=== PATIENT | female | born 1985 | race Caucasian/White ===

== ENCOUNTER → 2017-06-07 12:05 | Outpatient (CLI) | payer MEDICAID, SELFPAY | DX: Z36.9 Encounter for antenatal screening, unspecified (principal) | CPT/HCPCS: 36415 ==

== ENCOUNTER → 2017-06-24 09:25 | Outpatient (CLI) | payer MEDICAID, SELFPAY ==
[2017-06-24 10:10] LABS: Absolute Lymphocyte Count 1.07 X10^3/ul (0.83-4.51); Absolute Neutrophil Count 5.7 X10^3/uL (2.0-7.7); Basophil# 0.01 X10^3/uL; Basophil% 0.1 % (0-1); Eosinophil# 0.03 X10^3/uL; Eosinophils% 0.4 % (0-5); Hematocrit 33.5 % (37-47); Lymphocyte # 1.07 X10^3/ul (4.0); Mean Corp Hgb Conc 32.8 g/gl (32-36); Mean Corpuscular Volume 88.4 fL (81-99); Mean Platelet Vol. 9.3 fl (6.2-12.0); Monocyte# 0.27 X10^3/uL; Monocyte% 3.8 % (0-10); Neutrophil # 5.71 X10^3/uL (2.7-7.7); Neutrophil % 80.4 % (47-70); POSITIVE COUNT NO; POSITIVE DIFFERENTIAL NO; POSITIVE MORPHOLOGY NO; Platelet Count 197 K/mm3 (150-450); RBC Distribution Width CV 14.9 % (11.6-14.6); RBC Distribution Width SD 48.1 fl (35.1-43.9); Red Blood Count 3.79 M/mm3 (4.2-5.4); White Blood Count 7.1 K/mm3 (4.4-11.0)
[2017-06-24 10:34] LABS: 24HR. Urine Creatinine 1.48 g/24 HR (0.70-1.90)
[2017-06-24 10:55] LABS: Creat.Clear Total Volume 1000 mL; Creatinine Clearance 183 ml/min (100-200); Creatinine Serum Creat 0.6 mg/dL (0.6-1.0); EST Glomerular Filtration Rate 130 mL/min (>60); Est Glom Filt Rate - Afr Amer 158 mL/min (>60)
[2017-06-24 10:57] LABS: ALB/GLOB Ratio 0.8 RATIO (0.9-2.4); AST(SGOT) 12 U/L (15-37); Alanine Aminotransfer ALT/SGPT 18 U/L (13-56); Alkaline Phosphatase 58 U/L (45-117); Anion Gap 8 (5-15); BUN 7 mg/dL (7-18); BUN/Creat Ratio 12.4 RATIO (10-20); Calcium,Total 8.5 mg/dL (8.5-10.1); Chloride 106 mmol/L (98-107); Creatinine, Serum 0.56 mg/dL (0.55-1.02); EST Glomerular Filtration Rate 130 mL/min (>60); Est Glom Filt Rate - Afr Amer 158 mL/min (>60); Globulin 3.9 g/dL (2.2-4.2); Glucose 122 mg/dL (74-106); LDH 162 U/L (84-246); Potassium 3.5 mmol/L (3.5-5.1); Protein, Total 6.9 g/dL (6.4-8.2); Sodium Level 138 mmol/L (136-145); Thyroid Stim Hormone (TSH) 0.33 uIU/mL (0.358-3.74)
[2017-06-24 13:59] LABS: 24HR. UA Prot. Total Volume 1000 mL; Urine Protein (24 Hour) 10.7 mg/dL (<11.9)
== END ==
PROVIDERS: Nurse Practitioner Women's Health; Visit Provider Obstetrics & Gynecology
DX: O24.419 Gestational diabetes mellitus in pregnancy, unspecified control (principal); O09.40 Supervision of pregnancy with grand multiparity, unspecified trimester; O16.9 Unspecified maternal hypertension, unspecified trimester; Z3A.00 Weeks of gestation of pregnancy not specified
CPT/HCPCS: 36415; 80053; 82570; 82575; 83036; 83615; 84156; 84166; 84443; 84550; 85025

== ENCOUNTER → 2017-06-25 14:16 | Outpatient (CLI) | payer MEDICAID, SELFPAY ==
[2017-06-25 15:59] LABS: T4 Free Direct 1.13 ng/dL (0.76-1.46)
== END ==
PROVIDERS: Visit Provider Obstetrics & Gynecology
DX: R94.6 Abnormal results of thyroid function studies (principal)
CPT/HCPCS: 36415; 84439

== ENCOUNTER 2017-06-30 09:00 | Outpatient (RCR) | payer MEDICAID, SELFPAY | END 2017-07-24 23:59 | LOC: DC 09:00 | PROVIDERS: Visit Provider Nurse Practitioner | DX: O24.419 Gestational diabetes mellitus in pregnancy, unspecified control (principal); Z71.3 Dietary counseling and surveillance | CPT/HCPCS: 97802; G0108; G0109 ==

== ENCOUNTER → 2017-07-12 12:15 | Outpatient (CLI) | payer MEDICAID, SELFPAY | DX: Z36.9 Encounter for antenatal screening, unspecified (principal) | CPT/HCPCS: 36415 ==

== ENCOUNTER → 2017-07-20 18:44 | Outpatient (CLI) | payer MEDICAID, SELFPAY ==
--- NOTE | 2017-07-20 18:35 | US_ITS ---
STUDY: SECOND AND THIRD TRIMESTER OBSTETRICAL ULTRASOUND REASON FOR EXAM: Female, 31 years old. Anatomy LMP: TECHNIQUE: Transabdominal and Transvaginal PRIOR ULTRASOUND: None. FINDINGS: There is a single intrauterine fetus. The fetus is in a cephalic presentation. There is demonstrated cardiac activity with a heart rate of 150 bpm. There is a normal amniotic fluid volume. The largest amniotic fluid pocket measures 6.6 cm. The placenta is posterior in location and is not low lying. There are Grade 0 placental changes. The cervix measures 42 mm in length. The adnexal regions are not visualized. BIOMETRY: BPD: 41MM: 18 weeks, 3 days HC: 165MM: 19 weeks, 2 days AC: 143MM: 19 weeks, 5 days FL: 30MM: 19 weeks, 3 days CI: 72 FL/BPD: 74 FL/HC: FL/AC: 21 HC/AC: 1.15 age by current US: 19 weeks, 3 days. PATY by current US: 8.19.18. Estimated weight: 291 grams, +/- 43 grams, 62 %. Age by LMP: 19 weeks, 1 days. PATY by LMP: 8.20.18. ANATOMY: Gender: Female Cranium: Normal lateral ventricles. Normal choroid plexus. Normal cerebellum. Normal cisterna magna. Normal face, nose and lips. Chest: Normal 4-chamber heart. Abdomen/Pelvis: Normal diaphragm. Normal stomach. Normal abdominal wall. Normal cord insertion. Normal 3 vessel cord. Normal kidneys. Normal bladder. Spine: Normal cervical spine. Normal thoracic spine. Normal lumbar spine. Normal sacrum. Extremities: Normal bilateral upper extremities. Normal bilateral lower extremities. US/OB Anatomy Scan IMPRESSION: There is a single live intrauterine with a heart rate of 150 bpm. age by current US: 19 weeks, 3 days. PATY by current US: 8.19.18. Normal anatomic survey. Electronically Signed: Behzad Rios MD at 19:56 EDT , Service support ,
== END ==
PROVIDERS: Visit Provider Obstetrics & Gynecology
DX: O09.91 Supervision of high risk pregnancy, unspecified, first trimester (principal); Z3A.00 Weeks of gestation of pregnancy not specified
CPT/HCPCS: 76805

== ENCOUNTER 2017-09-27 09:50 | Outpatient (CLI) | payer MEDICAID, SELFPAY ==
--- NOTE | 2017-09-27 09:50 | DT_ITS ---
This patient was seen during an EMR downtime September 27, 2017 - October 04, 2017. This patient may have a combination of paper and electronic documentation or all paper documentation. All documentation is viewable within the e-chart portion of [facility] for each patient visit.
[2017-09-30 11:44] LABS: ALB/GLOB Ratio 0.8 RATIO (0.9-2.4); AST(SGOT) 10 U/L (15-37); Alanine Aminotransfer ALT/SGPT 14 U/L (13-56); Albumin, Serum 2.9 g/dL (3.2-5.0); Alkaline Phosphatase 62 U/L (45-117); BUN 7 mg/dL (7-18); BUN/Creat Ratio 14.9 RATIO (10-20); Calcium,Total 8.5 mg/dL (8.5-10.1); Creatinine, Serum 0.47 mg/dL (0.55-1.02); EST Glomerular Filtration Rate 161 mL/min (>60); Est Glom Filt Rate - Afr Amer 195 mL/min (>60); Globulin 3.6 g/dL (2.2-4.2); Glucose 92 mg/dL (74-106); Protein, Total 6.5 g/dL (6.4-8.2)
[2017-09-30 11:45] LABS: Anion Gap 7 (5-15); Chloride 109 mmol/L (98-107); Potassium 3.8 mmol/L (3.5-5.1); Protein, Urine (Random) 9.8 mg/dL (<11.9); Protein:Creat Ratio 100 mg/g CRE (0-200); Sodium Level 137 mmol/L (136-145)
[2017-09-30 16:56] LABS: Hematocrit 32.6 % (37-47); Hemoglobin 10.7 g/dl (12.0-15.0); Mean Corp Hgb Conc 32.8 g/gl (32-36); Mean Corpuscular Hgb 30.1 pg (27.0-32.0); Mean Corpuscular Volume 91.8 fL (81-99); Mean Platelet Vol. 10.4 fl (6.2-12.0); Platelet Count 216 K/mm3 (150-450); RBC Distribution Width CV 14.6 % (11.6-14.6); RBC Distribution Width SD 46.5 fl (35.1-43.9); Red Blood Count 3.55 M/mm3 (4.2-5.4); Scan Indicated on CBC? Y/N NO
[2017-09-30 17:53] LABS: International Normalized Ratio 1.1; Partial Thromboplast Time 29.7 Seconds (24.1-36.2); Prothrombin Time (Protime)PT. 13.9 SECONDS (11.7-14.9)
== END 2017-09-27 10:45 | disposition home or self-care (01) ==
LOC: WPOUT 09-28 14:32
PROVIDERS: Visit Provider Obstetrics & Gynecology
DX: Z34.90 Encounter for supervision of normal pregnancy, unspecified, unspecified trimester (principal); R03.0 Elevated blood-pressure reading, without diagnosis of hypertension
CPT/HCPCS: 36415; 59050; 80053; 82570; 84156; 84550; 85027; 85610; 85730; 99218; G0378

== ENCOUNTER → 2017-10-11 18:42 | Outpatient (CLI) | payer MEDICAID, SELFPAY ==
--- NOTE | 2017-10-11 18:44 | US_ITS ---
STUDY: SECOND AND THIRD TRIMESTER OBSTETRICAL ULTRASOUND - LIMITED REASON FOR EXAM: Female, 32 years old. Routine survey. LMP: 03/08/2017 PRIOR ULTRASOUND: 07/20/2017 TECHNIQUE: Transabdominal ultrasound evaluation was performed. FINDINGS: There is a single intrauterine fetus. The fetus is in a cephalic presentation. There is demonstrated cardiac activity with a heart rate of 149 bpm. There is a normal amniotic fluid volume. The largest amniotic fluid pocket measures 5.9 x 3.0 cm. The amniotic fluid index (AD) is 13.91 cm. The placenta is posterior in location and is not low lying. There are Grade 1 placental changes. The cervix measures 3.4 cm in length. BIOMETRY: BPD: 7.54 cm: 30 weeks, 2 days HC: 28.88 cm: 31 weeks, 6 days AC: 26.76 cm: 31 weeks, 0 days FL: 6.22 cm: 32 weeks, 2 days Age by LMP: 31 weeks, 0 days. PATY by LMP: 12/13/2017. age by prior US: 19 weeks, 3 days. PATY by prior US: 12/12/2017. age by current US: 31 weeks, 3 days. PATY by current US: 12/10/2017. Estimated weight: 1746 grams, +/- 255 grams, 49 percentile. Gender: Indeterminant US/OB Limited With Biometrics IMPRESSION: Single live intrauterine at 31 weeks, 3 days by current ultrasound with PATY of 12/10/2017. Heart rate at 149 bpm. No suspicious sonographic findings, there has been normal growth noted since the previous study. Electronically Signed: Rik Coronel MD at 8:37 EDT , Service support ,
== END ==
PROVIDERS: Visit Provider Obstetrics & Gynecology
DX: O24.419 Gestational diabetes mellitus in pregnancy, unspecified control (principal); O09.40 Supervision of pregnancy with grand multiparity, unspecified trimester; Z3A.00 Weeks of gestation of pregnancy not specified
CPT/HCPCS: 76816

== ENCOUNTER → 2017-11-08 08:52 | Outpatient (CLI) | payer MEDICAID, SELFPAY ==
--- NOTE | 2017-11-08 08:54 | US_ITS ---
STUDY: SECOND AND THIRD TRIMESTER OBSTETRICAL ULTRASOUND - LIMITED REASON FOR EXAM: Female, 32 years old. Routine survey. Gestational diabetes. LMP: March 08, 2017 PRIOR ULTRASOUND: Comparison is made with prior examination dated October 11, 2017 and July 20, 2017. TECHNIQUE: Transabdominal ultrasound evaluation was performed. FINDINGS: There is a single intrauterine fetus. The fetus is in a cephalic presentation. There is demonstrated cardiac activity with a heart rate of 139 bpm. There is a normal amniotic fluid volume. The largest amniotic fluid pocket measures 7.5 cm x 5.1 cm. The amniotic fluid index (AD) is 12.4 cm. The placenta is fundal in location. There are Grade 1 placental changes. The cervix measures 3.9 cm in length. BIOMETRY: BPD: 8.67 cm: 35 weeks, 0 days HC: 32.21 sono: 36 weeks, 3 days AC: 33.12 cm: 37 weeks, 1 days FL: 6.88 cm: 35 weeks, 3 days Age by LMP: 35 weeks, 0 days. PATY by LMP: December 13, 2017. age by prior US: 35 weeks, 3 days. PATY by prior US: December 10, 2017. age by current US: 36 weeks, 0 days. PATY by current US: December 06, 2017. Estimated weight: 2902 grams, +/- 424 grams, 83 percentile. Gender: US/OB Limited With Biometrics IMPRESSION: Single live intrauterine gestation with a mean gestational age of 35 weeks and 3 days. The measurements obtained today fall within the normal expected range. Electronically Signed: Shahriar Shannon MD at 15:03 EDT Tel [phone], Service support ,
== END ==
PROVIDERS: Visit Provider Obstetrics & Gynecology
DX: O24.419 Gestational diabetes mellitus in pregnancy, unspecified control (principal); O09.40 Supervision of pregnancy with grand multiparity, unspecified trimester; Z3A.00 Weeks of gestation of pregnancy not specified
CPT/HCPCS: 76816

== ENCOUNTER → 2017-11-29 09:02 | Outpatient (CLI) | payer MEDICAID, SELFPAY ==
--- NOTE | 2017-11-29 09:03 | US_ITS ---
STUDY: SECOND AND THIRD TRIMESTER OBSTETRICAL ULTRASOUND - LIMITED REASON FOR EXAM: Female, 32 years old. growth PRIOR ULTRASOUND: 11/08/2017 TECHNIQUE: Transabdominal ultrasound evaluation was performed. FINDINGS: There is a single intrauterine fetus. The fetus is in a cephalic presentation. There is demonstrated cardiac activity with a heart rate of 146 bpm. There is a normal amniotic fluid volume. The largest amniotic fluid pocket measures 5.5 cm. The amniotic fluid index (AD) is 12.9 cm. The placenta is fundal in location. There are Grade 2 placental changes. The cervix is not visualized. BIOMETRY: BPD: 9.33 cm: 38 weeks, 0 days HC: 33.4 cm: 38 weeks, 2 days AC: 35.33 cm: 30 weeks, 2 days FL: 7.63 cm: 39 weeks, 1 days age by prior US: 39 weeks, 0 days. PATY by prior US: 12/06/2017. age by current US: 38 weeks, 5 days. PATY by current US: 12/08/2017. Estimated weight: 3627 grams, +/- 530 grams, 83 percentile. US/OB Limited With Biometrics IMPRESSION: Single live intrauterine gestation at approximately 38 weeks and 5 days based on the current ultrasound. Electronically Signed: Davian Romero, at 20:56 EDT Tel , Service support ,
== END ==
PROVIDERS: Visit Provider Obstetrics & Gynecology
DX: O24.419 Gestational diabetes mellitus in pregnancy, unspecified control (principal); O09.40 Supervision of pregnancy with grand multiparity, unspecified trimester; Z3A.00 Weeks of gestation of pregnancy not specified
CPT/HCPCS: 76816

== ENCOUNTER 2017-12-06 09:25 | Inpatient (IN) | payer MEDICAID, SELFPAY ==
[2017-12-06] VITALS (19 sets, daily range): BP systolic 123–145; BP diastolic 62–86; PULSE 75–99; RESP 16–20; TEMP 36.2–36.9; O2SAT 96–99; BMI 41.9
[2017-12-06] MEDS: Lactated Ringers 1,000 ML 999 ML IV (10:10)
[2017-12-06 10:30] LABS: Absolute Lymphocyte Count 1.67 X10^3/ul (0.83-4.51); Absolute Neutrophil Count 6.3 X10^3/uL (2.0-7.7); Basophil# 0.01 X10^3/uL; Basophil% 0.1 % (0-1); Eosinophil# 0.03 X10^3/uL; Eosinophils% 0.4 % (0-5); Hematocrit 35.3 % (37-47); Hemoglobin 11.5 g/dl (12.0-15.0); Lymphocyte # 1.67 X10^3/ul (4.0); Lymphocyte % 19.6 % (19-41); Mean Corp Hgb Conc 32.6 g/gl (32-36); Mean Corpuscular Hgb 29.4 pg (27.0-32.0); Mean Corpuscular Volume 90.3 fL (81-99); Mean Platelet Vol. 10.7 fl (6.2-12.0); Monocyte# 0.44 X10^3/uL; Monocyte% 5.2 % (0-10); Neutrophil # 6.33 X10^3/uL (2.7-7.7); Neutrophil % 74.5 % (47-70); Platelet Count 169 K/mm3 (150-450); RBC Distribution Width CV 15.1 % (11.6-14.6); RBC Distribution Width SD 48.7 fl (35.1-43.9); Red Blood Count 3.91 M/mm3 (4.2-5.4); White Blood Count 8.5 K/mm3 (4.4-11.0)
[2017-12-06 10:33] LABS: POSITIVE COUNT NO; POSITIVE DIFFERENTIAL NO; POSITIVE MORPHOLOGY NO
[2017-12-06] MEDS: Lactated Ringers 1,000 ML 150 ML IV ×2 (11:01→15:48)
[2017-12-06] MEDS: Sodium Citrate/Citric Acid 30 ML UDC PO (11:51)
--- NOTE | 2017-12-06 11:53 | PCM.HPOB.BLA ---
- Problem List (1) Gestational diabetes mellitus (GDM) affecting fifth Status: Acute Comment: s/p nutrition consult, diet only for now (2) Supervision of high risk in first trimester Status: Acute Comment: PRR PATY 12/13/17 girl Angela Recio Hayden, Madilyn [place] (3) Body mass index (BMI) of 40.1 to 44.9 in adult Status: Acute Comment: recommend weekly nsts 32 weeks on (4) History of low transverse section Status: Acute Comment: 4 previous, had mfm consult, and plan RLTCS and BTL title 19 signed 09/08/17 (5) screening encounter Status: Acute Comment: Normal NT on 06/07/17. Normal 2nd SSQ History and Physical Date of Admission: 12/06/17 Vital Signs 11/29/17 Height 5 ft 9 in 11/29/17 Weight: 288 lb 4 oz 11/29/17 Body Mass Index (BMI) 42.5 11/29/17 Blood Pressure 137/82 Intake Visit Reasons: nst 38 weeks Is patient in pain?: No Allergies promethazine HCl [From Phenergan] Allergy (Verified 11/29/17 10:57) Itching Medications vitamin,calcium,wnqgluyg-qqwb-hopnj acid tablet 1 tab PO QDAY 05/11/17 [History Confirmed 11/29/17] blood sugar diagnostic strips See Dose Instructions .ROUTE .MEDSUPPLY #120 ea 06/30/17 [Rx Confirmed 11/29/17] blood-glucose meter See Dose Instructions .ROUTE .MEDSUPPLY #1 ea 06/30/17 [Rx Confirmed 11/29/17] acetone (urine) test strips See Dose Instructions .ROUTE .MEDSUPPLY #100 ea 07/02/17 [Rx Confirmed 11/29/17] blood pressure monitor kit See Dose Instructions .ROUTE .MEDSUPPLY #1 ea 07/02/17 [Rx Confirmed 11/29/17] Handicap Placard See Label Instructions .ROUTE .COMPLEX #1 11/03/17 [Rx Confirmed 11/29/17] Last Menstral Period: 03/08/17 Zika: Zika virus screening: Negative : No PFSH PFSH Surgical History delivery delivered (Acute) History of tonsillectomy (Acute) Family History Mother Diabetes Father Diabetes Social History Smoking Status: Never smoker alcohol intake: never substance use type: does not use caffeine: Yes frequency: 1-2 times per week seatbelt use: always do you feel safe at home: Yes additional social history: [employer] Patient owns a [employer] [facility] Pregancy History 7 Elective abortions Hx Para 4 Spontaneous abortions Hx # Term Pregnancies Ectopic pregnancies Hx # Pregnancies Multiple births # of living children Past Pregnancies Del. Date Name GA/Weeks Outcome Route Bth Weight Gen Labor Lgth Anesthesia Del Locatn Provider FOB Unknown 2006 Guillermo live - full term Male Rodri Unknown 2009 Arian live - full term Male Vicky Unknown 2011 Sharonda live - full term Female [place] Unknown 2015 Angela live - full term Female Rodri HPI nst 38 weeks: Details: PHUONG NINO is a 32 year old who presents for routine OB visit. OB Visit PATY Calculator Estimated Delivery Date 12/13/17 Based on LMP (certain) 03/08/17 Current WG 38w 0d Number 1 Expected Delivery Route/Plan RLTCS BTL title 19 form signed Specific Issue/Plans declines flu tdap vaccine: given rhogam: na LARC form signed: declined labor support person: [place] pain management: spinal cut cord/dad catch: : yes PP control planned: BTO special requests: Initial Weight: 279 lb Date EGA Weight BP Urine Prot Glucose FHR FuHt Pres Mov CTX Dilation Effaced St Visit Note Provider Comments 06/22/17 15w 1d 279 lb 2 oz (+2 oz) 176/86 Negative 1000 g/dL 160 Absent absent Denies cramping, LOF, VB. Had not heard about 3 hr GTT. Did see MFM for genetic screening. [place] 07/02/17 16w 4d 278 lb (-16 oz) 138/84 Negative Negative 160 absent Denies cramping, LOF, VB. Had not heard about 3 hr GTT. Did see MFM for genetic screening. no cramping bleeding, doing well [place] 07/15/17 18w 3d 275 lb 2 oz (-3 lb 14 oz) 136/70 Negative Negative 155 Active absent no cramping bleeding, doing well Doing well. No elevated BPs. Problem with glucose monitor not working [place] 07/28/17 20w 2d 275 lb 2 oz (-3 lb 14 oz) 131/82 Trace 500 g/dL 150 Active absent no vb cramping bs well controlled with diet. initial bp elevate but increased stress at home. [place] 08/16/17 23w 0d 280 lb 2 oz (+1 lb 2 oz) 127/73 Trace Negative 159 25 Active absent Denies CTX, VB, LOF. BS well controlled. [place] 08/30/17 25w 0d 278 lb 6 oz (-10 oz) 128/79 Negative Negative 145 Active absent no vb cramping BS fairly well controlled starting to have a few high post lunch and dinner. [place] 09/08/17 26w 2d 278 lb 8 oz (-8 oz) 132/80 Trace Negative 150 28 Active absent no vb lof good fm no regular ctx. BS well controlled [place] 10/11/17 31w 0d 284 lb (+5 lb) 118/76 Negative Negative 150 32 Active absent no vb lof good fm no regular ctx [place] 11/02/17 34w 1d 284 lb (+5 lb) 121/78 Negative Negative 140 Active absent no vb lof good fm no regular ctx [place] 11/08/17 35w 0d 286 lb 6 oz (+7 lb 6 oz) 125/98 140 Active absent no vb lof good fm no regular ctx bs reviewed and most within goal [place] 11/15/17 36w 0d 284 lb (+5 lb) 123/85 Negative 500 g/dL 140 Active absent no vb lof good fm no regular ctx, BS well controlled [place] 11/22/17 37w 0d 288 lb (+9 lb) 122/84 Negative Negative 155 Active absent Good FM. No VB, LOF. Blood sugars normal. NST [place] 11/29/17 38w 0d 288 lb 4 oz (+9 lb 4 oz) 137/82 Negative Negative 140 Active absent no vb lof good fm no regualr ctx [employer] Visit Notes Visit Date: 11/29/17 no vb lof good fm no regualr ctx Rayna Flores MD on 11/29/17 Visit Date: 11/22/17 Good FM. No VB, LOF. Blood sugars normal. NST VI Benjamin on 11/22/17 Visit Date: 11/15/17 no vb lof good fm no regular ctx, BS well controlled Rayna Flores MD on 11/15/17 Visit Date: 11/08/17 bs reviewed and most within goal Rayna Florse MD on 11/08/17 no vb lof good fm no regular ctx Rayna Flores MD on 11/08/17 Visit Date: 11/02/17 no vb lof good fm no regular ctx Rayna Flores MD on 11/02/17 Visit Date: 10/11/17 no vb lof good fm no regular ctx Rayna Flores MD on 10/11/17 Visit Date: 09/08/17 no vb lof good fm no regular ctx. BS well controlled Rayna Flores MD on 09/08/17 Visit Date: 08/30/17 no vb cramping BS fairly well controlled starting to have a few high post lunch and dinner. Rayna Flores MD on 08/30/17 Visit Date: 08/16/17 Denies CTX, VB, LOF. BS well controlled. VI Benjamin on 08/16/17 Visit Date: 07/28/17 no vb cramping bs well controlled with diet. initial bp elevate but increased stress at home. Rayna Flores MD on 07/28/17 Visit Date: 07/15/17 Doing well. No elevated BPs. Problem with glucose monitor not working VI Benjamin on 07/15/17 no cramping bleeding, doing well Rayna Flores MD on 07/02/17 no cramping bleeding, doing well Rayna Flores MD on 07/02/17 Visit Date: 07/02/17 no cramping bleeding, doing well Rayna Flores MD on 07/02/17 Denies cramping, LOF, VB. Had not heard about 3 hr GTT. Did see MFM for genetic screening. VI Benjamin on 06/22/17 Denies cramping, LOF, VB. Had not heard about 3 hr GTT. Did see MFM for genetic screening. VI Benjamin on 06/22/17 Visit Date: 06/22/17 Denies cramping, LOF, VB. Had not heard about 3 hr GTT. Did see MFM for genetic screening. VI Benjamin on 06/22/17 ACOG First Trimester First Trimester: Diagnostics Diagnostics Labs Hct 32.6 % (37-47) L 09/27/17 Hgb 10.7 g/dl (12.0-15.0) L 09/27/17 Obstetrics Ultrasound 11/29/17 Details: HIV: Urine Culture: Sequential Screen: NIPT Screen: Office Procedures OB NST Non-Stress Test Indications for Monitoring: Yes diabetes Heart Rate Baseline: 140 Heart Rate Variability: moderate Movement: Present Heart Rate Accelerations: Present Decelerations: Absent Contractions: Absent Impression: Yes Reactive Non-Stress Test Category 1 Results [id number] Office Urine Glucose Negative Last Edit by Therese Carrasco on 11/29/17 10:57 Office Urine Protein Negative Last Edit by Therese Carrasco on 11/29/17 10:57 Assessment & Plan Problems 1. Gestational diabetes mellitus (GDM) affecting fifth O24.419; O09.40 s/p nutrition consult, diet only for now 2. Body mass index (BMI) of 40.1 to 44.9 in adult Z68.41 recommend weekly nsts 32 weeks on 3. screening encounter Z36.9 Normal NT on 06/07/17. Normal 2nd SSQ 4. History of low transverse section Z98.891 4 previous, had mfm consult, and plan RLTCS and BTL title 19 signed 09/08/17 5. Supervision of high risk in first trimester O09.91 PRR PATY 12/13/17 girl PC Angela Don Hayden, Sharonda [place] Plan RLTCS BTL Orders Orders: POC Urinalysis 2 Dip (Clinic) Today OB NST Today O09.40, O24.419 Coding Level of Care Code Off vis,est,level 3 Diagnoses Gestational diabetes mellitus (GDM) affecting fifth O24.419; O09.40 Body mass index (BMI) of 40.1 to 44.9 in adult Z68.41 screening encounter Z36.9 History of low transverse section Z98.891 Supervision of high risk in first trimester O09.91
[2017-12-06 12:16] LABS: Bedside Glucose 80 mg/dL (70-110)
--- NOTE | 2017-12-06 12:20 | FALL_PTH ---
PATIENT: PHUONG NINO LOC: WP U#:[id number] AGE/SX: 32/F ROOM: [facility] RE12/06/[address]: Dr. Rayna Flores MD : 1985 BED: 1 DIS: 12/09/2017 SPEC #: [id number] RECD: 12/06/17 13:33 STATUS: BEN RERich #: [id number] SHERLYN: 12/06/17 12:[address]: Rayna Flores DEPT: SURGICAL PATHOLOGY RECD BY: Yordan Pedersen ENTERED: 12/06/17 13:37 SP TYPE: FALL TUBES OTHR DR: No Primary Care Phys Tissues: Fallopian tube Procedures: Surgery Specimen Level II HEADER OPERATION: Tubal ligation PRE-OP DIAGNOSIS: Requests sterilization TISSUE SUBMITTED: Fallopian tubes, stitch in right tube MICROSCOPIC DIAGNOSIS Bilateral fallopian tubes, tubal ligation: Completely transected segments of bilateral fallopian tubes, no pathologic diagnosis. SJ:tesha 12/07/17 MICROSCOPIC DESCRIPTION Slides are reviewed. GROSS DESCRIPTION Received is one container labeled with the patient's name and not further designated. The specimen consists of two tubular pieces of pink-avila soft tissue measuring 2 cm in length and 0.7 cm in diameter and the second piece shows a suture and measures 2.5 cm in length and 0.7 cm in diameter and identified as the right tube. This is inked black. The entire specimen is submitted in one cassette. Both pieces will be sectioned at the time of embedding. / EASTON:tesha 12/06/17 TC: 4 CPT: 54256 x2
[2017-12-06] MEDS: Oxytocin 30 units/NS 500 ml 30 UNITS/500 ML IV.SOLN 167 UNITS IV (12:21)
[2017-12-06 13:32] LABS: Pathology Specimen OB SEE PATHOLOGY REPORT
[2017-12-06 13:34] LABS: Group B Strep DNA By PCR Negative (Negative); Internal Control PASS; Probe Check PASS; Specimen Processing Control PASS
[2017-12-06 13:41] LABS: Bedside Glucose 90 mg/dL (70-110)
--- NOTE | 2017-12-06 17:17 | NURSING ---
see final recovery assessment and vital signs in pacu vital signs.
[2017-12-06] MEDS: Ketorolac 30 MG/ML Syringe IV ×2 (18:41→23:55)
[2017-12-06] MEDS: Lactated Ringers 1,000 ML 100 ML IV (23:56)
[2017-12-07] VITALS (9 sets, daily range): BP systolic 127–155; BP diastolic 71–83; PULSE 80–96; RESP 15–18; TEMP 36.2–36.9; O2SAT 96–100
[2017-12-07] MEDS: Acetaminophen 500 MG Tablet 1000 MG PO (04:24)
[2017-12-07 04:56] LABS: Bedside Glucose 121 mg/dL (70-110)
[2017-12-07 04:59] LABS: Hematocrit 32.2 % (37-47); Hemoglobin 10.5 g/dl (12.0-15.0); Mean Corp Hgb Conc 32.6 g/gl (32-36); Mean Corpuscular Hgb 29.7 pg (27.0-32.0); Mean Platelet Vol. 10.3 fl (6.2-12.0); Platelet Count 139 K/mm3 (150-450); RBC Distribution Width CV 14.9 % (11.6-14.6); Red Blood Count 3.54 M/mm3 (4.2-5.4); Scan Indicated on CBC? Y/N NO; White Blood Count 9.2 K/mm3 (4.4-11.0)
[2017-12-07] MEDS: Ketorolac 30 MG/ML Syringe IV ×3 (06:14→18:20)
--- NOTE | 2017-12-07 07:45 | PCM.PN.OB ---
Subjective: Doing well with good pain control. Slight elevated BS this AM:ate applesause prior. No CP, SOB - Physical Exam General: Alert, Oriented x3 Abdomen: Soft, Non-Distended - Dressing dry and intact, mildly tender with exam Vital Signs Temp Pulse Resp BP Pulse Ox 97.4 F L 91 18 149/83 H 97 12/07/17 04:37 12/07/17 06:20 12/07/17 06:20 12/07/17 04:37 12/07/17 06:20 Oxygen Delivery Method Room Air Weight: 284 lb Body Mass Index (BMI) 41.9 Intake and Output for Last 24 Hours 12/05/17 12/06/17 12/07/17 23:59 23:59 23:59 Intake Total 2757 / 2757 2820 / 2820 Output Total 500 / 500 1600 / 1600 Balance 2257 / 2257 1220 / 1220 Laboratory Tests Past 24 Hrs 12/06/17 12/06/17 12/06/17 10:10 10:10 12:10 WBC 8.5 RBC 3.91 L Hgb 11.5 L Hct 35.3 L MCV 90.3 MCH 29.4 MCHC 32.6 RDW 15.1 H RDW Differential 48.7 H Plt Count 169 MPV 10.7 Immature Gran % (Auto) 0.200 Neut % (Auto) 74.5 H Lymph % (Auto) 19.6 Dale % (Auto) 5.2 Eos % (Auto) 0.4 Baso % (Auto) 0.1 Absolute Neuts (auto) 6.3 Absolute Lymphs (auto) 1.67 Total Counted Not Reportable Group B Strep DNA Negative Specimen Comment Not Reportable Blood Type A POSITIVE Antibody Screen NEGATIVE 12/07/17 04:50 WBC 9.2 RBC 3.54 L Hgb 10.5 L Hct 32.2 L MCV 91.0 MCH 29.7 MCHC 32.6 RDW 14.9 H RDW Differential 49.0 H Plt Count 139 L MPV 10.3 Immature Gran % (Auto) Neut % (Auto) Lymph % (Auto) Dale % (Auto) Eos % (Auto) Baso % (Auto) Absolute Neuts (auto) Absolute Lymphs (auto) Total Counted Group B Strep DNA Specimen Comment Blood Type Antibody Screen POC Glucose 12/07/17 12/06/17 12/06/17 04:46 13:26 12:11 POC Glucose 121 H 90 80 Medical Necessity - Tobacco Use Smoking Status: Never smoker Assessment/Plan All Active Problems (Last Reviewed 11/29/17 @ 10:58 by Jessica Andrew) Gestational diabetes mellitus (GDM) affecting fifth (Acute) Supervision of high risk in first trimester (Acute) Body mass index (BMI) of 40.1 to 44.9 in adult (Acute) History of low transverse section (Acute) screening encounter (Acute) Abnormal TSH (Resolved) LTCS repeat POD#1: routine care, up and ambulate today. well.
--- NOTE | 2017-12-07 10:00 | NURSING ---
agree with asha duke r.n.
[2017-12-07] MEDS: 0.9% Saline Lock 10 ML Syringe IV ×3 (10:53→18:20)
[2017-12-07] MEDS: Prenatal Vits Tablet 1 TABLET PO (11:38)
[2017-12-07] MEDS: Senna/Docusate Sodium 1 Tablet PO (17:32)
[2017-12-07] MEDS: oxyCODONE 5 MG Tablet PO ×2 (17:33→21:34)
[2017-12-08] MEDS: 0.9% Saline Lock 10 ML Syringe IV ×3 (00:21→12:27)
[2017-12-08] MEDS: Ketorolac 30 MG/ML Syringe IV ×3 (00:21→12:28)
[2017-12-08 01:40] VITALS: BP 146/71; PULSE 85; RESP 18; TEMP 36.3; O2SAT 95
[2017-12-08] MEDS: oxyCODONE 5 MG Tablet PO ×3 (04:37→15:39)
--- NOTE | 2017-12-08 05:35 | PCM.OPRPT ---
Problem List (1) Gestational diabetes mellitus (GDM) affecting fifth Status: Acute Comment: s/p nutrition consult, diet only for now (2) Supervision of high risk in first trimester Status: Acute Comment: PRR PATY 12/13/17 girl PC Angela Don Hayden Sharonda [place] (3) Body mass index (BMI) of 40.1 to 44.9 in adult Status: Acute Comment: recommend weekly nsts 32 weeks on (4) History of low transverse section Status: Acute Comment: 4 previous, had mfm consult, and plan RLTCS and BTL title 19 signed 09/08/17 (5) screening encounter Status: Acute Comment: Normal NT on 06/07/17. Normal 2nd SSQ Report of Operation Date of Procedure: 12/06/17 Pre-Operative Diagnosis: prev cs x 4 desired sterilization Post-Operative Diagnosis: same Surgery/Procedure Performed:: RLTCS BTL Description of Surgical Findings:: thickened anterior fascis, thinning LUIS FELIPE but intact wrapper layer: Tyree Guajardo Type of Anesthesia:: Spinal Special Medications: crystalloid, cordelia Specimen's removed: female infant vertex Drains: michael Estimated Blood Loss (mL): 850 Fluids Replaced: crystalloid Description of Procedure: The patient is a 32 yo presented for repeat and bilateral tubal ligation. Spinal anesthesia was placed without difficulty. Michael catheter was placed. The patient was placed in the dorsal supine position with leftward tilt. Patient was prepped and draped in the normal sterile fashion. Pfannenstiel skin incision was made with the scalpel and carried through to the underlying layer of fascia with the scalpel. Fascia was nicked in the midline and the incision extended laterally. The rectus bellies were dissected off superiorly and inferiorly with out complication both sharply and bluntly. The peritoneum was entered digitally. The incision was stretched and a low transverse uterine incision was made with the scalpel. The 's head was delivered atraumatically followed by the anterior and posterior shoulders without complication the rest of the delivered. The cord was clamped and cut and the infant was handed off to awaiting nurse. The placenta was delivered spontaneously immediately following and was noted to be intact and have a three-vessel cord. The uterus was exteriorized cleared of all clots and debris, and the incision was closed using #1 Monocryl. cordelia used on the right side of the incision. Bilateral fallopian tubes were elevated and the mesosalpinx transected with the bovie and the fallopian tube tied off proximally and distally with suture. THe tube was removed and excellent hemostasis was seen. The uterus was returned to the maternal abdomen and gutters were cleared of all clots and debris. The ovaries and fallopian tubes were noted to be within normal limits. The peritoneum was closed with 3-0 Monocryl in a running fashion. Fascia was closed with 0 PDS in a running fashion. Subcutaneous tissue was copiously irrigated and the skin was closed with 3-0 Monocryl in a subcuticular fashion. Steri-Strips and Mepilex dressing were applied without complication. Patient was taken to recovery in stable condition. Grafts/Implants Used: none - Complications none
[2017-12-08 08:03] VITALS: BP 153/78; PULSE 95; RESP 18; TEMP 36.6
--- NOTE | 2017-12-08 08:23 | PCM.PN.OB ---
Subjective: No SOB, CP. Minimal lochia. Up ambulating well. Denies concerns - Physical Exam General: Alert, Oriented x3 Abdomen: Soft, Non-Distended, - - minimal tenderness. Dressing dry and intact, FF below U Vital Signs Temp Pulse Resp BP Pulse Ox 97.8 F 95 18 153/78 H 95 12/08/17 08:03 12/08/17 08:03 12/08/17 08:03 12/08/17 08:03 12/08/17 01:40 Oxygen Delivery Method Room Air Weight: 284 lb Body Mass Index (BMI) 41.9 Intake and Output for Last 24 Hours 12/06/17 12/07/17 12/08/17 23:59 23:59 23:59 Intake Total 2757 / 2757 2876 / 2876 Output Total 500 / 500 3900 / 3900 Balance 2257 / 2257 -1024 / -1024 Microbiology Past 72 Hours 12/06/17 Unknown Group B Streptococcus Culture - Preliminary Genital vaginal Medical Necessity - Tobacco Use Smoking Status: Never smoker Assessment/Plan All Active Problems (Last Reviewed 11/29/17 @ 10:58 by Jessica Andrew) Gestational diabetes mellitus (GDM) affecting fifth (Acute) Supervision of high risk in first trimester (Acute) Body mass index (BMI) of 40.1 to 44.9 in adult (Acute) History of low transverse section (Acute) screening encounter (Acute) Abnormal TSH (Resolved) LTCS BTO POD#2: routine care. . Pain controlled.
[2017-12-08] MEDS: Senna/Docusate Sodium 1 Tablet PO (09:17)
[2017-12-08] MEDS: Prenatal Vits Tablet 1 TABLET PO (09:19)
[2017-12-08] MEDS: Acetaminophen 500 MG Tablet 1000 MG PO ×2 (11:20→19:46)
[2017-12-08 15:23] VITALS: BP 159/69; PULSE 85; RESP 16; TEMP 36.6; O2SAT 97
[2017-12-08 19:50] VITALS: BP 148/73; PULSE 86; RESP 18; TEMP 36.4
[2017-12-08] MEDS: Naproxen 250 MG Tablet PO (23:31)
[2017-12-09 02:00] VITALS: BP 141/81; PULSE 90; RESP 18; TEMP 36.6
[2017-12-09] MEDS: oxyCODONE 5 MG Tablet PO ×2 (02:14→12:15)
[2017-12-09] MEDS: Acetaminophen 500 MG Tablet 1000 MG PO (04:35)
[2017-12-09 08:00] VITALS: BP 134/80; PULSE 76; RESP 20; TEMP 36.6
[2017-12-09] MEDS: Senna/Docusate Sodium 1 Tablet PO (08:47)
[2017-12-09] MEDS: Prenatal Vits Tablet 1 TABLET PO (08:47)
--- NOTE | 2017-12-09 11:02 | PCM.PN.OB ---
Subjective: doing well no complaints - Physical Exam General: Alert, Oriented x3 Vital Signs Temp Pulse Resp BP Pulse Ox 97.8 F 76 20 H 134/80 H 97 12/09/17 08:00 12/09/17 08:00 12/09/17 08:00 12/09/17 08:00 12/08/17 15:23 Oxygen Delivery Method Room Air Weight: 284 lb Body Mass Index (BMI) 41.9 Intake and Output for Last 24 Hours 12/07/17 12/08/17 12/09/17 23:59 23:59 23:59 Intake Total 2876 / 2876 Output Total 3900 / 3900 Balance -1024 / -1024 Microbiology Past 72 Hours 12/06/17 Unknown Group B Streptococcus Culture - Final Genital vaginal Group B Beta Streptococcus is not isolated. Medical Necessity - Tobacco Use Smoking Status: Never smoker Assessment/Plan All Active Problems (Last Reviewed 11/29/17 @ 10:58 by Jessica Andrew) Gestational diabetes mellitus (GDM) affecting fifth (Acute) Supervision of high risk in first trimester (Acute) Body mass index (BMI) of 40.1 to 44.9 in adult (Acute) History of low transverse section (Acute) screening encounter (Acute) Abnormal TSH (Resolved) s/p LTCS routine care dc home gdma1- 2 hour gtt 6 weeks PP, encouraged to check BS at home
--- NOTE | 2017-12-09 11:03 | PCM.DCCSEC ---
Discharge Diet: No Restrictions Discharge Activity: May Not Drive - for 2 weeks, May not drive while taking narcotic pain medications., May Shower, May Take a Tub Bath - in 7 days May resume sexual activity in: 4-6 weeks Lifting Restrictions: 20 pounds Additional Activity Instructions:: Nothing in the vagina for 4-6 weeks. You may return to work/school in 6 weeks. Call your doctor if your incision/area has: Continuous Slow Oozing, Sudden Increased Bleeding, Increased Pain/ Swelling, Increased Redness, Foul Smelling Discharge Call your doctor if you observe: Fever of 101 or Higher, Using more than one pad per hour - for 2 hours Suture Line Care: Avoid Pulling/Pushing, Avoid Pinching/Bending Cleanse incision/area with: Keep Dressing Clean & Dry Additional Instructions: If you experience any of the following, contact your healthcare provider. Bleeding that soaks a pad every hour for 2 hours Fever 100.4 or higher Unrelieved incision or abdominal pain Swelling, redness, discharge or bleeding from your incision or episiotomy site Your incision begins to separate Problems urinating (including inability to urinate or burning while urinating). Visual changes Severe headache Flu-like symptoms Pain or redness in one of both of your breasts Pain, warmth, tenderness or swelling in your legs, especially the calf area Frequent nausea and vomiting Symptoms of depression or anxiety If you experience any of the following, call 911 or go to the nearest Emergency Room. Chest pain Problems breathing Seizure activity Partial or complete paralysis of a body part, slurred speech, weakness or drooping of the face, or a sudden inability to walk or hold your balance Allergies/Adverse Reactions: Allergies promethazine HCl [From Phenergan] Allergy (Verified 12/06/17 09:44) Itching Medications to take at Discharge Vits [Prenatabs FA] 1 tablet PO DAILY 12/06/17 Naproxen [Naprosyn] 250 - 500 mg PO Q8H PRN PRN #30 tab 12/09/17 Oxycodone HCl/Acetaminophen [Percocet 5-325] 1 - 2 tablet PO Q4H PRN PRN 7 Days #28 tablet 12/09/17 The following prescriptions were given: Oxycodone HCl/Acetaminophen [Percocet 5-325] 1 - 2 tablet PO Q4H PRN PRN 7 Days #28 tablet PRN Reason: Moderate-Severe pain Naproxen [Naprosyn] 250 - 500 mg PO Q8H PRN PRN #30 tab PRN Reason: MILD PAIN Follow-Up: Call to make an appointment with your doctor for an incision check in 1-2 weeks. You will also need a 6 week post- follow up appointment. Test results from this visit will be discussed in further detail at your follow-up appointment, if applicable. Please Follow Up With: Rayna Flores MD - Call to make an appointment for an incision check in 1-2 [phone] When: You will need a post- check in 6 weeks. Primary Care Physician: Care Physician,No Primary [Primary Care Provider] -
--- NOTE | 2017-12-09 11:06 | PCM.DC.SUM ---
Discharge Date and Diagnosis Date of Admission: 12/06/17 Date of Discharge: 12/09/17 - Primary Discharge Diagnosis s/p rltcs btl Hospital Course and Treatment Operations: - - rltcs btl Summary of Care Provided: The patient is a 32 year old F presents for RLTCSBTL underwent deliveyr had routine recovery dc home stable condition Discharge Diet: No Restrictions Discharge Activity: May Not Drive - for 2 weeks, May not drive while taking narcotic pain medications., May Shower, May Take a Tub Bath - in 7 days May resume sexual activity in: 4-6 weeks Additional Activity Instructions:: Nothing in the vagina for 4-6 weeks. You may return to work/school in 6 weeks. Call your doctor if your incision/area has: Continuous Slow Oozing, Sudden Increased Bleeding, Increased Pain/ Swelling, Increased Redness, Foul Smelling Discharge Call your doctor if you observe: Fever of 101 or Higher, Using more than one pad per hour - for 2 hours Suture Line Care: Avoid Pulling/Pushing, Avoid Pinching/Bending Cleanse incision/area with: Keep Dressing Clean & Dry Home Medications: Medications to take at Discharge Vits [Prenatabs FA] 1 tablet PO DAILY 12/06/17 Naproxen [Naprosyn] 250 - 500 mg PO Q8H PRN PRN #30 tab 12/09/17 Oxycodone HCl/Acetaminophen [Percocet 5-325] 1 - 2 tablet PO Q4H PRN PRN 7 Days #28 tablet 12/09/17 Following Prescrptions Were Given to Patient: Oxycodone HCl/Acetaminophen [Percocet 5-325] 1 - 2 tablet PO Q4H PRN PRN 7 Days #28 tablet PRN Reason: Moderate-Severe pain Naproxen [Naprosyn] 250 - 500 mg PO Q8H PRN PRN #30 tab PRN Reason: MILD PAIN Primary Care Physician: Care Physician,No Primary [Primary Care Provider] - Please Follow Up With: Rayna Flores MD - Call to make an appointment for an incision check in 1-2 [phone] When: You will need a post- check in 6 weeks. Medical Necessity - Tobacco Use Smoking Status: Never smoker Meaningful Use Info Meaningful Use Diagnoses (Choose all that apply): None applicable
[2017-12-09 13:07] VITALS: BP 134/80; PULSE 76; RESP 20; TEMP 36.6
== END 2017-12-09 13:00 | disposition home or self-care (01) | DRG 371 ==
PROVIDERS: Admitting Provider Obstetrics & Gynecology; Visit Provider Obstetrics & Gynecology
PROC: 10D00Z1 Extraction of Products of Conception, Low, Open Approach (ICD-10-PCS; CPT 59514; principal; 2017-12-06 11:45)
DX: O34.211 Maternal care for low transverse scar from previous cesarean delivery (principal); N85.8 Other specified noninflammatory disorders of uterus; Z3A.38 38 weeks gestation of pregnancy; Z37.0 Single live birth; Z30.2 Encounter for sterilization; O24.420 Gestational diabetes mellitus in childbirth, diet controlled
CPT/HCPCS: 82962; 85025; 85027; 86850; 86900; 87081; 87653; 88302; 99218; J7120; A4216; G0378

== ENCOUNTER 2017-12-14 10:15 | Outpatient (CLI) | payer MEDICAID, SELFPAY | END 2017-12-14 11:15 | disposition home or self-care (01) | LOC: WPOUT 10:21 → WP 10:22 | PROVIDERS: Visit Provider Obstetrics & Gynecology | DX: Z39.1 Encounter for care and examination of lactating mother (principal) | CPT/HCPCS: 96152 ==

== ENCOUNTER → 2018-01-18 15:52 | Outpatient (CLI) | payer MEDICAID, SELFPAY ==
[2018-01-24 11:33] LABS: HPV APTIMA, High Risk Negative (Negative)
== END ==
PROVIDERS: Visit Provider Obstetrics & Gynecology
DX: Z12.4 Encounter for screening for malignant neoplasm of cervix (principal)
CPT/HCPCS: 88175; G0145

== ENCOUNTER 2021-07-08 09:14 | Outpatient (CLI) | payer MEDICAID, SELFPAY ==
--- NOTE | 2021-07-08 09:20 | US_ITS ---
INDICATION: right lower quadrant pain- r/o ovarian cyst EXAMINATION: Ultrasound US Transvaginal Non-OB TECHNIQUE: Transvaginal (for optimal evaluation of the adnexa) pelvic ultrasound was performed. Grayscale, spectral waveform, and color flow Doppler evaluation of the adnexa. COMPARISON: Pelvic ultrasound from 07/08/2021 FINDINGS: UTERUS: Anteverted. The uterus measures 11.4 x 6.7 x 5.8 cm. There is no uterine mass. The endometrial stripe measures 13 mm in AP diameter which is within normal limits for patient''s age. RIGHT OVARY: 5.3 x 3.4 x 3.4 cm. There is a 3.3 cm cyst with lacelike internal reticulations and some complex layering debris. The remainder of the right ovary is nonenlarged with normal echogenicity.. There is normal arterial inflow and venous outflow present in the right ovary. LEFT OVARY: 3.9 x 2.7 x 2.3 cm. Non-enlarged, normal echogenicity. There is normal arterial inflow and venous outflow present in the left ovary. FREE FLUID: None. US/Transvaginal Non- IMPRESSION: 1. 3.3 cm likely hemorrhagic cyst in the right ovary. Follow-up in 2-3 menstrual cycles recommended to assess for resolution. 2. The remainder of the exam is unremarkable. Electronically Signed: Mike Layne, at 10:23 EDT ,
--- NOTE | 2021-07-08 09:20 | US_ITS ---
INDICATION: right lower quadrant pain- r/o ovarian cyst EXAMINATION: Ultrasound US Transvaginal Non-OB TECHNIQUE: Transvaginal (for optimal evaluation of the adnexa) pelvic ultrasound was performed. Grayscale, spectral waveform, and color flow Doppler evaluation of the adnexa. COMPARISON: Pelvic ultrasound from 07/08/2021 FINDINGS: UTERUS: Anteverted. The uterus measures 11.4 x 6.7 x 5.8 cm. There is no uterine mass. The endometrial stripe measures 13 mm in AP diameter which is within normal limits for patient''s age. RIGHT OVARY: 5.3 x 3.4 x 3.4 cm. There is a 3.3 cm cyst with lacelike internal reticulations and some complex layering debris. The remainder of the right ovary is nonenlarged with normal echogenicity.. There is normal arterial inflow and venous outflow present in the right ovary. LEFT OVARY: 3.9 x 2.7 x 2.3 cm. Non-enlarged, normal echogenicity. There is normal arterial inflow and venous outflow present in the left ovary. FREE FLUID: None. US/Pelvic (Non ) IMPRESSION: 1. 3.3 cm likely hemorrhagic cyst in the right ovary. Follow-up in 2-3 menstrual cycles recommended to assess for resolution. 2. The remainder of the exam is unremarkable. Electronically Signed: Mike Layne, at 10:23 EDT ,
== END 2021-07-08 23:59 | disposition home or self-care (01) ==
LOC: US 09:14
PROVIDERS: Visit Provider Obstetrics & Gynecology
DX: R10.31 Right lower quadrant pain (principal)
CPT/HCPCS: 76830; 76856; 93976

== ENCOUNTER 2021-08-12 12:20 | Outpatient (CLI) | payer MEDICAID, SELFPAY ==
--- NOTE | 2021-08-12 12:21 | US_ITS ---
STUDY: ULTRASOUND OF THE FEMALE PELVIS - COMPLETE REASON FOR EXAM: Female, 36 years old. right ovarian cyst follow-up LMP: 07/13/2021. TECHNIQUE: Transabdominal and transvaginal scan. TECHNICAL QUALITY: Adequate. COMPARISON: Pelvic ultrasound 07/08/2021. FINDINGS: UTERUS: 10.4 cm length. Normal configuration.. ENDOMETRIUM: Not thickened. Nabothian cysts in the cervix. OVARIES: RIGHT ovary: 4.2 x 1.8 x 3.1 cm. 2 adjacent cysts ovarian measure 1.5 x 0.9 x 1.5 cm, and 1.7 x 0.9 x 1 cm. Alternatively this could be a larger cyst with a septation. The previously noted complex cyst seen on the previous study is not identified. Vascular flow demonstrated. No findings to suggest ovarian torsion. LEFT ovary: Seen on the transabdominal scan only. Measured 2.9 x 2 x 2.7 cm and unremarkable. Vascular flow demonstrated. No findings to suggest ovarian torsion. FREE FLUID: None. US/Transvaginal Non- IMPRESSION: 2 small adjacent right ovarian cysts versus a larger septated cyst. Previously noted larger right ovarian complex cyst not visualized. Continued follow-up ultrasound suggested in 2-3 menstrual cycles to reevaluate. Electronically Signed: Savannah Farrell MD at 4:25 EDT ,
--- NOTE | 2021-08-12 12:21 | US_ITS ---
STUDY: ULTRASOUND OF THE FEMALE PELVIS - COMPLETE REASON FOR EXAM: Female, 36 years old. right ovarian cyst follow-up LMP: 07/13/2021. TECHNIQUE: Transabdominal and transvaginal scan. TECHNICAL QUALITY: Adequate. COMPARISON: Pelvic ultrasound 07/08/2021. FINDINGS: UTERUS: 10.4 cm length. Normal configuration.. ENDOMETRIUM: Not thickened. Nabothian cysts in the cervix. OVARIES: RIGHT ovary: 4.2 x 1.8 x 3.1 cm. 2 adjacent cysts ovarian measure 1.5 x 0.9 x 1.5 cm, and 1.7 x 0.9 x 1 cm. Alternatively this could be a larger cyst with a septation. The previously noted complex cyst seen on the previous study is not identified. Vascular flow demonstrated. No findings to suggest ovarian torsion. LEFT ovary: Seen on the transabdominal scan only. Measured 2.9 x 2 x 2.7 cm and unremarkable. Vascular flow demonstrated. No findings to suggest ovarian torsion. FREE FLUID: None. US/Pelvic (Non ) IMPRESSION: 2 small adjacent right ovarian cysts versus a larger septated cyst. Previously noted larger right ovarian complex cyst not visualized. Continued follow-up ultrasound suggested in 2-3 menstrual cycles to reevaluate. Electronically Signed: Savannah Farrell MD at 4:25 EDT ,
== END 2021-08-12 23:59 | disposition home or self-care (01) ==
LOC: OPUS 12:20
PROVIDERS: Referring Provider Obstetrics & Gynecology; Visit Provider Obstetrics & Gynecology
DX: N83.201 Unspecified ovarian cyst, right side (principal)
CPT/HCPCS: 76830; 76856

== ENCOUNTER → 2021-12-22 | Outpatient (CLI) | payer MEDICAID, SELFPAY ==
--- NOTE | 2021-12-22 10:20 | US_ITS ---
STUDY: ULTRASOUND OF THE FEMALE PELVIS - COMPLETE REASON FOR EXAM: Female, 36 years old. Pelvic pain LMP: Unknown. TECHNIQUE: Transabdominal and Transvaginal TECHNICAL QUALITY: Adequate. COMPARISON: None. FINDINGS: The uterus is anteverted and is in a midline position. The uterus measures 11.1 cm x 6.4 cm x 6 cm. There is a Nabothian cyst of the cervix. The endometrium measures 15 mm in thickness, and is hyperechoic. There is no demonstrated endometrial mass. There is no demonstrated myometrial mass. I.U.D. - The patient does not have an I.U.D. The right ovary is visualized. The right ovary measures 4.8 cm x 3 cm x 3.3 cm. There is no right ovarian cyst or ovarian mass. There is a 1.1 YORDAN by 1.3 cm x 1.3 cm right paraovarian cyst. There is normal arterial and normal venous vascularity. The left ovary is visualized. The left ovary measures 3.6 cm x 2.8 cm x 2.2 cm. There is no left ovarian cyst or ovarian mass. There is no visualized left adnexal mass or complex lesion. There is normal arterial and normal venous vascularity. There is no fluid in the cul-de-sac. The pre void volume of the bladder was 118 ml. US/Pelvic (Non ) IMPRESSION: There is a 1.1 cm x 1.3 cm x 1.3 cm right paraovarian cyst. This has decreased in size as compared to prior study. Electronically Signed: Shahriar Shannon MD at 13:55 EDT ,
--- NOTE | 2021-12-22 10:20 | US_ITS ---
STUDY: ULTRASOUND OF THE FEMALE PELVIS - COMPLETE REASON FOR EXAM: Female, 36 years old. Pelvic pain LMP: Unknown. TECHNIQUE: Transabdominal and Transvaginal TECHNICAL QUALITY: Adequate. COMPARISON: None. FINDINGS: The uterus is anteverted and is in a midline position. The uterus measures 11.1 cm x 6.4 cm x 6 cm. There is a Nabothian cyst of the cervix. The endometrium measures 15 mm in thickness, and is hyperechoic. There is no demonstrated endometrial mass. There is no demonstrated myometrial mass. I.U.D. - The patient does not have an I.U.D. The right ovary is visualized. The right ovary measures 4.8 cm x 3 cm x 3.3 cm. There is no right ovarian cyst or ovarian mass. There is a 1.1 YORDAN by 1.3 cm x 1.3 cm right paraovarian cyst. There is normal arterial and normal venous vascularity. The left ovary is visualized. The left ovary measures 3.6 cm x 2.8 cm x 2.2 cm. There is no left ovarian cyst or ovarian mass. There is no visualized left adnexal mass or complex lesion. There is normal arterial and normal venous vascularity. There is no fluid in the cul-de-sac. The pre void volume of the bladder was 118 ml. US/Transvaginal Non- IMPRESSION: There is a 1.1 cm x 1.3 cm x 1.3 cm right paraovarian cyst. This has decreased in size as compared to prior study. Electronically Signed: Shahriar Shannon MD at 13:55 EDT ,
== END | disposition home or self-care (01) ==
LOC: US 10:18
PROVIDERS: Referring Provider Obstetrics & Gynecology; Visit Provider Obstetrics & Gynecology
DX: R10.11 Right upper quadrant pain (principal)
CPT/HCPCS: 76830; 76856; 93976

== ENCOUNTER → 2024-07-27 | Outpatient (CLI) | payer MEDICAID, SELFPAY | END | disposition home or self-care (01) | LOC: LABSPEC 11:26 | PROVIDERS: PCP Internal Medicine; Referring Provider Advanced Practice Midwife; Visit Provider Advanced Practice Midwife | DX: Z12.4 Encounter for screening for malignant neoplasm of cervix (principal); N89.8 Other specified noninflammatory disorders of vagina | CPT/HCPCS: 87070; 87205; 87624; 88175; G0145 ==